=== PATIENT | female | born 1960 | race Two or more races ===

== ENCOUNTER → 2017-12-26 | Outpatient (CLI) | payer OTHER ==
--- NOTE | 2017-12-26 11:23 | RADIOLOGY REPORT (SQ) ---
EXAM DESCRIPTION: WRIST RIGHT 2 VIEWS COMPLETED DATE/TIME: 12/26/2017 10:34 am REASON FOR STUDY: PAIN IN RIGHT WRIST M25.531 PAIN IN RIGHT WRIST COMPARISON: None. NUMBER OF VIEWS: Three views. TECHNIQUE: AP, lateral, and oblique radiographic images acquired of the right wrist. LIMITATIONS: None. FINDINGS: MINERALIZATION: Normal. BONES: No acute fracture or malalignment. There is a small 6 mm subcortical cyst in the scaphoid bon e at the radioscaphoid joint. Minimal bony spurring at the scaphotrapezium joint without joint space widening. SOFT TISSUES: No soft tissue swelling. No foreign body. OTHER: No other significant finding. IMPRESSION: No acute fracture or malalignment. 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
== END ==
LOC: OD 10:18
PROVIDERS: ATTEND Physician Assistant
DX: M25.531 Pain in right wrist (principal)